=== PATIENT | male | born 1955 | race Caucasian/White ===

== ENCOUNTER 2018-07-04 20:00 | Observation (INO) ==
[2018-07-04 20:09] VITALS: TEMP 98.6
--- NOTE | 2018-07-04 20:43 | ED ---
HPI General Chief Complaint: Chest Pain Stated Complaint: Chest Pain Time Seen by Provider: 07/04/18 20:19 Source: patient and RN notes reviewed Mode of arrival: ambulatory Limitations: no limitations History of Present Illness HPI narrative: 63 year old male presents to the emergency department for evaluation of chest pain that has been intermittent over the past month. Patient states it started this morning. He denies any exacerbating factors. He does state that Zantac will sometimes help alleviate it. He states pain was 6/10 to the left chest without radiation when he got here, but it is decreasing on its own, currently 1/10. He states it will sometimes radiate to the left arm , but not now. He states he was to get a stress test with Dr. Rubi on , but came here since it was worse today. He denies any associated SOB. Patient states he took several ASA today. He has hx of DM, HTN, hyperlipidemia. MD complaint: Reports chest pain STEMI Alert: No Onset (ago): month(s) (1) Duration: intermittent Onset: during rest Pain location: Reports left chest Severity: moderate Severity scale (1-10): 1 Quality: Reports heaviness and other ("bubbles") Pain radiation: Reports none Relieving factors: antacids Exacerbating factors: nothing Associated symptoms: Denies nausea, vomiting, diaphoresis, dyspnea, sense of impending doom, syncope, palpitations, fever, cough and leg swelling Treatments prior to arrival chest pain: Reports aspirin Related Data Home Medications Medication Instructions Recorded Confirmed aspirin [Aspir-81] 81 mg PO DAILY 07/04/18 07/04/18 clotrimazole-betamethasone 1 applic TOPICAL BID 07/04/18 07/04/18 hydrochlorothiazide 25 mg PO DAILY 07/04/18 07/04/18 lisinopril 20 mg PO DAILY 07/04/18 07/04/18 lovastatin 20 mg PO DAILY 07/04/18 07/04/18 metformin 1,000 mg PO DAILY 07/04/18 07/04/18 ranitidine HCl 150 mg PO DAILY 07/04/18 07/04/18 sildenafil 20 mg PO PRN 07/04/18 07/04/18 tamsulosin 0.4 mg PO DAILY 07/04/18 07/04/18 Allergies Allergy/AdvReac Type Severity Reaction Status Date / Time No Known Allergies Allergy Verified 07/04/18 20:09 Review of Systems ROS: all other systems reviewed are negative [facility] Medical History Medical History BPH (benign prostatic hyperplasia) (Acute) Diabetes (Acute) GERD (gastroesophageal reflux disease) (Acute) HTN (hypertension) (Acute) Hyperlipidemia (Acute) Social History Social History Substance History: No History of Abuse Second Hand Smoke Exposure: No Smoking Status: Former smoker How Often Do You Have a Drink Containing Alcohol: Monthly or less Recent Travel [facility] within the Last 8 Weeks: No Recent Out of Country Travel within the Last 8 Weeks: No Immunization History Tetanus Immunization: <5 Years Exam Narrative Exam Narrative: GENERAL: Well-nourished, well-developed male patient, afebrile. SKIN: Focused skin assessment warm/dry. HEAD: Normocephalic. Atraumatic. EYES: No scleral icterus. No injection or drainage. NECK: Supple, trachea midline. No JVD or lymphadenopathy. CARDIOVASCULAR: Regular rate and rhythm without murmurs, gallops, or rubs. Bilateral radial and pedal pulses 2+ RESPIRATORY: Breath sounds equal bilaterally. No accessory muscle use. Lung sounds are clear to auscultation. GASTROINTESTINAL: Abdomen soft, non-tender, nondistended. MUSCULOSKELETAL: No cyanosis, or edema. BACK: Nontender without obvious deformity. No CVA tenderness. Course Initial Documented Vital Signs Temperature 98.6 F 07/04/18 20:05 Pulse Rate 76 07/04/18 20:05 Respiratory Rate 17 07/04/18 20:05 Blood Pressure 186/88 H 07/04/18 20:05 Pulse Oximetry 97 07/04/18 20:05 Last Documented Vital Signs Temperature 98.6 F 07/04/18 20:05 Pulse Rate 59 L 07/04/18 21:19 Respiratory Rate 20 07/04/18 21:19 Blood Pressure 186/88 H 07/04/18 20:05 Pulse Oximetry 98 07/04/18 21:19 Medical Decision Making MDM Narrative Medical decision making narrative: 63 year old male presents to the emergency department for evaluation of chest pain that has been intermittent for the past month. EKG, CBC, CMP, Magnesium, Troponin, Chest x-ray are ordered and pending. CBC shows slight leukocytosis of 11.2. CMP shows no acute abnormality. Magnesium is 2.1. Troponin is less than 0.02. Chest x-ray is negative. Patient will be admitted to the [facility]. Medical Screen Exam Complete: Yes Emergency Medical Condition: Yes Differential Diagnosis Differential Diagnosis: ACS vs. angina vs. anxiety vs. chest wall pain vs. pneumonia vs. pneumothorax Medical Records Medical records reviewed: Yes I reviewed the patient's medical records. Lab Data Result diagrams: 07/04/18 20:27 07/04/18 20:27 Lab Results 07/04/18 07/04/18 07/04/18 Range/Units 20:27 20:27 20:27 WBC 11.2 H (4.0-11.0) th/mm3 RBC 4.71 (4.50-5.90) mil/mm3 Hgb 15.3 (13.0-17.0) gm/dL Hct 43.9 (39.0-51.0) % MCV 93.1 (80.0-100.0) fL MCH 32.5 (27.0-34.0) pg MCHC 34.9 (32.0-36.0) % RDW 12.7 (11.6-17.2) % Plt Count 240 (150-450) th/mm3 MPV 11.3 H (7.0-11.0) fL Neut % (Auto) 40.0 (16.0-70.0) % Lymph % (Auto) 45.9 H (9.0-44.0) % [place] % (Auto) 9.9 H (0.0-8.0) % Eos % (Auto) 3.9 (0.0-4.0) % Baso % (Auto) 0.3 (0.0-2.0) % Neut # (Auto) 4.5 (1.8-7.7) th/mm3 Lymph # (Auto) 5.1 H (1.0-4.8) th/mm3 [place] # (Auto) 1.1 H (0.0-0.9) th/mm3 Eos # (Auto) 0.4 (0.0-0.4) th/mm3 Baso # (Auto) 0.0 (0.0-0.2) th/mm3 WBC Differential . Differential Comment Auto diff final Sodium 137 (136-145) meq/L Potassium 3.7 (3.5-5.1) meq/L Chloride 104 (98-107) meq/L Carbon Dioxide 26.6 (21.0-32.0) meq/L Anion Gap 6 (5-15) meq/L BUN 15 (7-18) mg/dL Creatinine 1.21 (0.60-1.30) mg/dL Estimated GFR 60 L (>89) mL/min Random Glucose 95 (74-106) mg/dL Calcium 8.8 (8.5-10.1) mg/dL Magnesium 2.1 Cancelled (1.5-2.5) mg/dL Total Bilirubin 0.3 (0.2-1.0) mg/dL AST 33 (15-37) U/L ALT 58 (12-78) U/L Alkaline Phosphatase 57 (45-117) U/L Troponin I Less than 0.02 L (0.02-0.05) ng/mL Total Protein 8.8 H (6.4-8.2) g/dL Albumin 4.2 (3.4-5.0) g/dL Imaging Data Radiologist's impression: Chest X-Ray 07/04/18 20:26 CONCLUSION: 1. Negative portable chest. Discharge Plan Discharge Disposition Patient Disposition: ED Admit(ED Internal Use Only) Discharge Order Discharge Orders: ED Use Only Admit Order (Routine); Ordered 07/04/18 Ordered By: Reena Baker Discharge Details Diagnosis: Chest pain Physicians Team ED Provider: Geovany Sanchez ED Midlevel Provider: Reena Baker Primary Care Provider: Saw Arguelles Attending Provider: Delgado Knutson Discharge Interventions Interventions: Vital Signs Last Done: 07/04/18 21:19 Status ED Status: Admitted Observation Patient
[2018-07-04 20:46] LABS: Baso % (Auto) 0.3 % (0.0-2.0); Eos # (Auto) 0.4 th/mm3 (0.0-0.4); Eos % (Auto) 3.9 % (0.0-4.0); Hematocrit 43.9 % (39.0-51.0); Hemoglobin 15.3 gm/dL (13.0-17.0); Lymph # (Auto) 5.1 th/mm3 (1.0-4.8); Lymph % (Auto) 45.9 % (9.0-44.0); Mean Corpuscular HGB Conc 34.9 % (32.0-36.0); Mean Corpuscular Hemoglobin 32.5 pg (27.0-34.0); Mean Corpuscular Volume 93.1 fL (80.0-100.0); Mean Platelet Volume 11.3 fL (7.0-11.0); Mono # (Auto) 1.1 th/mm3 (0.0-0.9); Mono % (Auto) 9.9 % (0.0-8.0); Neut # (Auto) 4.5 th/mm3 (1.8-7.7); Platelet Count 240 th/mm3 (150-450); Red Blood Count 4.71 mil/mm3 (4.50-5.90); Red Cell Distribution Width 12.7 % (11.6-17.2); White Blood Count 11.2 th/mm3 (4.0-11.0)
[2018-07-04 21:13] LABS: Albumin 4.2 g/dL (3.4-5.0); Anion Gap 6 meq/L (5-15); Aspartate Aminotransferase 33 U/L (15-37); Blood Urea Nitrogen 15 mg/dL (7-18); Calcium 8.8 mg/dL (8.5-10.1); Carbon Dioxide 26.6 meq/L (21.0-32.0); Chloride 104 meq/L (98-107); Glomerular Filtration Rate 60 mL/min (>89); Glucose,Random 95 mg/dL (74-106); Magnesium 2.1 mg/dL (1.5-2.5); Potassium 3.7 meq/L (3.5-5.1); Sodium 137 meq/L (136-145)
[2018-07-04 21:15] LABS: Alanine Aminotransferase 58 U/L (12-78)
[2018-07-04 21:18] LABS: Alkaline Phosphatase 57 U/L (45-117); Total Protein 8.8 g/dL (6.4-8.2)
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
[2018-07-04] MEDS ORDERED: Acetaminophen 500 MG Tablet PO PRN (21:52)
[2018-07-04 22:03] VITALS: BP 146/74; PULSE 56; RESP 13; O2SAT 97
[2018-07-05 01:00] LABS: Creatine Kinase 102 U/L (39-308)
[2018-07-05 03:30] LABS: Creatine Kinase 112 U/L (39-308)
--- NOTE | 2018-07-05 08:34 | P.HPCA ---
History of Present Illness Primary Care Physician: Saw Arguelles MD Chief Complaint: Chest pain History of Present Illness: 63 year old male with history of hypertension, hyperlipidemia, type 2 diabetes, GERD presents emergency room for further evaluation chest pain. Onset intermittently x3 weeks. Last episode yesterday morning approximately 20 minutes after drinking a cup of coffee and taking morning medications. Location left anterior chest. Characterized as a sharp burning sensation. No associated symptoms of nausea, vomiting, dyspnea or diaphoresis. Discomfort waxed and waned in intensity all day. No radiation. No precipitating factors. Took Zantac with some relief. Discomfort never completely resolved until 9 PM last evening. Endorses similar discomfort since . Followed up with his primary care provider, Dr. Saw Arguelles who referred him to remotely operated vehicle Dr. Elder Rubi. Seen Dr. Elder Rubi last week. He is scheduled for a CT coronary angiogram 07/10/18 and possible cardiac catheterization on Saturday07/11/18. Patient states Dr. Elder Rubi discussed different cardiac evaluation option, including cardiac catheterization. States he preferred a noninvasive test but did not wish to have chemical stress testing therefore is scheduled for a CT coronary angiogram. No recent illness, fever, cough, or injury. History of GERD. Last EGD 2 years ago, uncertain of results. Endorses recent dysphagia with increase use of Zantac and anti-acids. Past cardiac testing Follows with Dr. Elder Rubi. 12/22/15 [employer] ETT-Ambulated 7:02 minutes, no evidence of stress induced ischemia. Reports normal cardiac catheterization in 2005. Social history Known hypertension, hyperlipidemia, and type 2 diabetes. No known CAD. Former smoker, quit 1983. 10 pack year history. Endorses drinking beers on fairly regular basis. Sedentary lifestyle. Family history Father age 47 from myocardial infarction. Mother age 58 from complication of congestive heart failure. - Diagnosis (1) Chest pain of unknown etiology (2) Hypertension (3) History of type 2 diabetes mellitus (4) Hyperlipidemia Review of Systems All other systems reviewed negative except as stated in HPI PMFSH - History History Provided By: Patient - Medical History Medical History: Medical History (Last Reviewed 07/05/18 @ 08:10 by BRIDGER Melara) BPH (benign prostatic hyperplasia) Diabetes GERD (gastroesophageal reflux disease) HTN (hypertension) Hyperlipidemia - Surgical History Surgical History: Surgical History (Last Updated 07/05/18 @ 08:10 by BRIDGER Melara) H/O inguinal hernia repair - Family History Family History: Family History (Last Updated 07/05/18 @ 08:12 by BRIDGER Melara) Father Myocardial infarction Mother Congestive heart failure - Social History I have reviewed the patient's Social History: Yes - Tobacco History Second Hand Smoke Exposure: No Tobacco Use In Past 30 Days: No Smoking Status: Former smoker (quit smoking 1983) years: 10 - Alcohol History How Often Do You Have a Drink Containing Alcohol: 4 or more times a week - Substance Use History Substance History: Active Abuse - Substance Use Type Alcohol Status: Active Route Used: By Mouth Reason for Use: Calm Down - Travel History Recent Travel in the [place] Within the Last 8 Weeks: No Recent Travel Out of the Country Within the Last 8 Weeks: No - Immunization History Tetanus Immunization: <5 Years Medications and Allergies Active Medications: Active Medications Acetaminophen (Tylenol) 500 mg PO Q4H PRN PRN Reason: HEADACHE Nitroglycerin (Nitrostat Sl) 0.4 mg SL Q5M PRN PRN Reason: CHEST PAIN Ondansetron HCl (Zofran Inj) 4 mg IV.PUSH Q6H PRN PRN Reason: NAUSEA Sodium Chloride (Ns Flush) 2 ml IV.FLUSH BID [place] Sodium Chloride (Ns Flush) 2 ml IV.FLUSH PRN PRN PRN Reason: FLUSH AFTER USING IV ACCESS Allergies Allergy/AdvReac Type Severity Reaction Status Date / Time No Known Allergies Allergy Verified 07/04/18 20:09 Home Medications Medication Instructions Recorded Confirmed Type aspirin [Aspir-81] 81 mg PO DAILY 07/04/18 07/04/18 History clotrimazole-betamethasone 1 applic TOPICAL BID 07/04/18 07/04/18 History hydrochlorothiazide 25 mg PO DAILY 07/04/18 07/04/18 History lisinopril 20 mg PO DAILY 07/04/18 07/04/18 History lovastatin 20 mg PO DAILY 07/04/18 07/04/18 History metformin 1,000 mg PO DAILY 07/04/18 07/04/18 History ranitidine HCl 150 mg PO DAILY 07/04/18 07/04/18 History sildenafil 20 mg PO PRN 07/04/18 07/04/18 History tamsulosin 0.4 mg PO DAILY 07/04/18 07/04/18 History Exam Vital signs: Vital Signs 07/04/18 20:05 07/04/18 21:19 07/04/18 22:02 Temperature 98.6 F Pulse Rate 76 59 L 56 L Respiratory Rate 17 20 13 Blood Pressure 186/88 H 146/74 H Pulse Oximetry 97 98 97 Intake & Output 07/04/18 07/05/18 07/05/18 18:59 06:59 18:59 Weight 106.594 kg Other: Date of Last Bowel Movement 07/04/18 Weight On Admission 106.594 kg Narrative: GENERAL: Alert WN, WD, NAD, anxious, overweight male HEAD: NC, AT EYES: Sclera clear, conjunctiva without injection, pupils equal and round ENT: Mucous membranes pink and moist NECK: Supple, no masses, trachea midline CV: Brachycardiac rhythm, without murmur, rub, or gallop, S1-S2. No carotid bruits. Chest wall nontender to palpation. RESP: Clear lungs throughout bilateral, no crackles, wheeze, rhonchi, symmetrical chest rise, nonlabored, able to speak in full sentences ABD: Soft, NT, ND, no masses, positive bowel tones BACK: No scoliosis EXT: Pulses +2x4, no dependent edema MS: Normal tone x4 extremities, nontender, no obvious deformities, full range of motion NEURO: Motor strength 5/5, gait WNL PSYCH: A+O x3, flat affect, appropriate speech, anxious mood, appropriate insight and judgment SKIN: Normal turgor, normal texture, no lesions, no rashes, brisk cap refill, even hair distribution Results 07/04/18 20:27 07/04/18 20:27 Cardiac Enzymes 07/04/18 07/05/18 07/05/18 Range/Units 20:27 00:00 02:55 AST 33 (15-37) U/L Troponin I Less than 0.02 L Less than 0.02 L Less than 0.02 L (0.02-0.05) ng/mL CBC 07/04/18 Range/Units 20:27 WBC 11.2 H (4.0-11.0) th/mm3 RBC 4.71 (4.50-5.90) mil/mm3 Hgb 15.3 (13.0-17.0) gm/dL Hct 43.9 (39.0-51.0) % Plt Count 240 (150-450) th/mm3 Neut # (Auto) 4.5 (1.8-7.7) th/mm3 Lymph # (Auto) 5.1 H (1.0-4.8) th/mm3 [place] # (Auto) 1.1 H (0.0-0.9) th/mm3 Eos # (Auto) 0.4 (0.0-0.4) th/mm3 Baso # (Auto) 0.0 (0.0-0.2) th/mm3 Comprehensive Metabolic Panel 07/04/18 Range/Units 20:27 Sodium 137 (136-145) meq/L Potassium 3.7 (3.5-5.1) meq/L Chloride 104 (98-107) meq/L Carbon Dioxide 26.6 (21.0-32.0) meq/L BUN 15 (7-18) mg/dL Creatinine 1.21 (0.60-1.30) mg/dL Calcium 8.8 (8.5-10.1) mg/dL AST 33 (15-37) U/L ALT 58 (12-78) U/L Alkaline Phosphatase 57 (45-117) U/L Total Protein 8.8 H (6.4-8.2) g/dL Albumin 4.2 (3.4-5.0) g/dL Intake and Output 07/04/18 07/05/18 07/05/18 22:59 06:59 14:59 Other: Date of Last Bowel Movement 07/04/18 Weight 106.594 kg 106.594 kg Weight On Admission 106.594 kg - Imaging and Cardiology Imaging: Impressions Chest X-Ray 07/04/18 20:26 CONCLUSION: 1. Negative portable chest. EKG interpretations - EKG EKG results cardiology: normal axis, normal QRS, normal ST/T - Dysrhythmias Sinus rhythms and dysrhythmias: sinus bradycardia (< 50 bpm) Caprini VTE Risk Assessment Caprini VTE Risk Assessment: Moderate/High Risk (score >= 2) Caprini Risk Assessment Model: Point Value = 1 Point Value = 2 Point Value = 3 Point Value = 5 Age 41-60 Minor surgery BMI > 25 kg/m2 Swollen legs Varicose veins or History of unexplained or recurrent spontaneous Oral contraceptives or hormone replacement Sepsis (< 1 month) Serious lung disease, including pneumonia (< 1 month) Abnormal pulmonary function Acute myocardial infarction Congestive heart failure (< 1 month) History of inflammatory bowel disease Medical patient at bed rest Age 61-74 Arthroscopic surgery Major open surgery (> 45 min) Laparoscopic surgery (> 45 min) Malignancy Confined to bed (> 72 hours) Immobilizing plaster cast Central venous access Age >= 75 History of VTE Family history of VTE Factor V Leiden Prothrombin [id number] Lupus anticoagulant Anticardiolipin antibodies Elevated serum homocysteine Heparin-induced thrombocytopenia Other congenital or acquired thrombophilia Stroke (< 1 month) Elective arthroplasty Hip, pelvis, or leg fracture Acute spinal cord injury (< 1 month) Prophylaxis Regimen: Total Risk Factor Score Risk Level Prophylaxis Regimen 0-1 Low Early ambulation 2 Moderate Order ONE of the following: *Sequential Compression Device (SCD) *Heparin 5000 units SQ BID 3-4 Higher Order ONE of the following medications: *Heparin 5000 units SQ TID *Enoxaparin/Lovenox 40 mg SQ daily (WT < 150 kg, CrCl > 30 mL/min) *Enoxaparin/Lovenox 30 mg SQ daily (WT < 150 kg, CrCl > 10-29 mL/min) *Enoxaparin/Lovenox 30 mg SQ BID (WT < 150 kg, CrCl > 30 mL/min) AND/OR *Sequential Compression Device (SCD) 5 or more Highest Order ONE of the following medications: *Heparin 5000 units SQ TID (Preferred with Epidurals) *Enoxaparin/Lovenox 40 mg SQ daily (WT < 150 kg, CrCl > 30 mL/min) *Enoxaparin/Lovenox 30 mg SQ daily (WT < 150 kg, CrCl > 10-29 mL/min) *Enoxaparin/Lovenox 30 mg SQ BID (WT < 150 kg, CrCl > 30 mL/min) AND *Sequential Compression Device (SCD) Assessment and Plan - Assessment (1) Chest pain of unknown etiology Code(s): R07.89 - Other chest pain Status: Acute Plan: Admitted to chest pain center. ACS ruled out with 3 sets of EKGs and cardiac enzymes. Will be seen and evaluated by Dr. Saw Cain. Discussed likely will proceed with further cardiac testing later this morning after evaluation by remotely operated vehicle. (2) Hypertension Code(s): I10 - Essential (primary) hypertension Status: Chronic Plan: Continue lisinopril and HCTZ. Encouraged lifestyle and dietary modification in addition to medications. (3) History of type 2 diabetes mellitus Code(s): Z86.39 - Personal history of other endocrine, nutritional and metabolic disease Status: Chronic Plan: Tinea metformin. Encourage dietary modification and increasing daily activity. (4) Hyperlipidemia Code(s): E78.5 - Hyperlipidemia, unspecified Status: Chronic Plan: Continue lovastatin. Due to patient's hesitancy and statements regarding statin therapy, made aware guidelines for diabetic include statin therapy. H&P: Quality - VTE Deep Vein Thrombosis/Pulmonary Embolism Present on Admission: No (2) Hypertension Qualifiers: Hypertension type: unspecified Qualified Code(s): I10 - Essential (primary) hypertension (4) Hyperlipidemia Qualifiers: Hyperlipidemia type: unspecified Qualified Code(s): E78.5 - Hyperlipidemia, unspecified
--- NOTE | 2018-07-05 08:51 | P.PNCA ---
Subjective Interval history: 63-year-old gentleman seen and examined the nurse practitioner. History and physical is as documented in her notes. This patient's presentation is atypical for cardiac disease and he has been previously evaluated with negative findings. He has also had previous GI evaluation of a concern about an ulcer that he seems to have dismissed. His current symptoms are suggestive of GI and he has complaints of dysphagia. However, he is extremely anxious about cardiac disease because both his mother and his father younger than he of heart disease. We will rule him out again because of his risk factors of family history diabetes and hypertension but his symptoms will clearly warrant further GI evaluation after his discharge. Medications and Allergies Active Medications: Active Medications Acetaminophen (Tylenol) 500 mg PO Q4H PRN PRN Reason: HEADACHE Nitroglycerin (Nitrostat Sl) 0.4 mg SL Q5M PRN PRN Reason: CHEST PAIN Ondansetron HCl (Zofran Inj) 4 mg IV.PUSH Q6H PRN PRN Reason: NAUSEA Sodium Chloride (Ns Flush) 2 ml IV.FLUSH BID [place]ON[place] Sodium Chloride (Ns Flush) 2 ml IV.FLUSH PRN PRN PRN Reason: FLUSH AFTER USING IV ACCESS Allergies Allergy/AdvReac Type Severity Reaction Status Date / Time No Known Allergies Allergy Verified 07/04/18 20:09 Home Medications Medication Instructions Recorded Confirmed Type aspirin [Aspir-81] 81 mg PO DAILY 07/04/18 07/04/18 History clotrimazole-betamethasone 1 applic TOPICAL BID 07/04/18 07/04/18 History hydrochlorothiazide 25 mg PO DAILY 07/04/18 07/04/18 History lisinopril 20 mg PO DAILY 07/04/18 07/04/18 History lovastatin 20 mg PO DAILY 07/04/18 07/04/18 History metformin 1,000 mg PO DAILY 07/04/18 07/04/18 History ranitidine HCl 150 mg PO DAILY 07/04/18 07/04/18 History sildenafil 20 mg PO PRN 07/04/18 07/04/18 History tamsulosin 0.4 mg PO DAILY 07/04/18 07/04/18 History Physical Exam Vital signs: Vital Signs 07/04/18 20:05 07/04/18 21:19 07/04/18 22:02 Temperature 98.6 F Pulse Rate 76 59 L 56 L Respiratory Rate 17 20 13 Blood Pressure 186/88 H 146/74 H Pulse Oximetry 97 98 97 Intake & Output 07/04/18 07/05/18 07/05/18 18:59 06:59 18:59 Weight 106.594 kg Other: Date of Last Bowel Movement 07/04/18 Weight On Admission 106.594 kg Narrative: Well-nourished well-developed obese man in no acute distress walking about room Skin warm and dry Head normocephalic atraumatic Eyes PERRLA EOMI sclera clear Mouth mucous membranes moist tongue well papillated teeth in good state of repair no lesions Neck supple no JVD masses nodes or bruits Chest no tenderness is noted clear to auscultation with no rales wheezes or rhonchi Cardiovascular PMI is not displaced the rhythm is regular sinus there are no gallops rubs or murmurs Abdomen obese soft nontender no guarding or rebound no hepatosplenomegaly or masses Extremities no clubbing cyanosis or edema pulses are mildly diminished but intact Neurologic cranial nerves exclusive of olfactory are intact. Motor upper and lower is symmetric and approximately equal. Gait and balance were not tested Psychiatric he is clearly anxious but appears to exhibit good memory and good judgment. Results 07/04/18 20:27 07/04/18 20:27 Cardiac Enzymes 07/04/18 07/05/18 07/05/18 Range/Units 20:27 00:00 02:55 AST 33 (15-37) U/L Troponin I Less than 0.02 L Less than 0.02 L Less than 0.02 L (0.02-0.05) ng/mL CBC 07/04/18 Range/Units 20:27 WBC 11.2 H (4.0-11.0) th/mm3 RBC 4.71 (4.50-5.90) mil/mm3 Hgb 15.3 (13.0-17.0) gm/dL Hct 43.9 (39.0-51.0) % Plt Count 240 (150-450) th/mm3 Neut # (Auto) 4.5 (1.8-7.7) th/mm3 Lymph # (Auto) 5.1 H (1.0-4.8) th/mm3 [place] # (Auto) 1.1 H (0.0-0.9) th/mm3 Eos # (Auto) 0.4 (0.0-0.4) th/mm3 Baso # (Auto) 0.0 (0.0-0.2) th/mm3 Comprehensive Metabolic Panel 07/04/18 Range/Units 20:27 Sodium 137 (136-145) meq/L Potassium 3.7 (3.5-5.1) meq/L Chloride 104 (98-107) meq/L Carbon Dioxide 26.6 (21.0-32.0) meq/L BUN 15 (7-18) mg/dL Creatinine 1.21 (0.60-1.30) mg/dL Calcium 8.8 (8.5-10.1) mg/dL AST 33 (15-37) U/L ALT 58 (12-78) U/L Alkaline Phosphatase 57 (45-117) U/L Total Protein 8.8 H (6.4-8.2) g/dL Albumin 4.2 (3.4-5.0) g/dL Intake and Output 07/04/18 07/05/18 07/05/18 22:59 06:59 14:59 Other: Date of Last Bowel Movement 07/04/18 Weight 106.594 kg 106.594 kg Weight On Admission 106.594 kg - Imaging and Cardiology Imaging: Impressions Chest X-Ray 07/04/18 20:26 CONCLUSION: 1. Negative portable chest. Assessment and Plan - Assessment (1) Chest pain of unknown etiology Code(s): R07.89 - Other chest pain Status: Acute Plan: Admitted to chest pain center. ACS ruled out with 3 sets of EKGs and cardiac enzymes. Will be seen and evaluated by Dr. Saw Cain. Patient has ruled out for ACS using standard chest pain center protocol. He will be further evaluated with an exercise stress test. If this is negative he will be discharged with the recommendation that they have a follow-up with GI services for further evaluation of his dysphagia and GI pain. (2) Hypertension Code(s): I10 - Essential (primary) hypertension Status: Chronic Plan: Continue lisinopril (3) History of type 2 diabetes mellitus Code(s): Z86.39 - Personal history of other endocrine, nutritional and metabolic disease Status: Chronic (4) Hyperlipidemia Code(s): E78.5 - Hyperlipidemia, unspecified Status: Chronic (2) Hypertension Qualifiers: Hypertension type: unspecified Qualified Code(s): I10 - Essential (primary) hypertension
[2018-07-05] MEDS ORDERED: hydroCHLOROthiazide 25 MG Tablet PO SCH (09:00)
[2018-07-05] MEDS ORDERED: Lisinopril 20 MG Tablet PO SCH (09:00)
[2018-07-05] MEDS ORDERED: Famotidine 20 MG Tablet PO SCH (09:15)
--- NOTE | 2018-07-05 12:08 | ECG ---
Date Performed: 07/05/2018 Time Performed: 00:01:19 PTAGE: 63 years EKG: SINUS BRADYCARDIA LOW QRS VOLTAGE IN PRECORDIAL LEADS BORDERLINE ECG No significant change NO PREVIOUS TRACING DOCTOR: Saw Cain Interpretating Date/Time 07/05/2018 12:07:08
--- NOTE | 2018-07-05 12:08 | ECG ---
Date Performed: 07/05/2018 Time Performed: 02:07:53 PTAGE: 63 years EKG: SINUS BRADYCARDIA BORDERLINE ECG No significant change PREVIOUS TRACING : 07/04/2018 20.26 DOCTOR: Saw Cain Interpretating Date/Time 07/05/2018 12:06:53
--- NOTE | 2018-07-05 12:09 | ECG ---
Date Performed: 07/04/2018 Time Performed: 20:26:52 PTAGE: 63 years EKG: Sinus rhythm MINIMAL ST DEPRESSION BORDERLINE ECG No change PREVIOUS TRACING : 12/21/2015 21.22 DOCTOR: Saw Cain Interpretating Date/Time 07/05/2018 12:07:41
--- NOTE | 2018-07-05 12:12 | TR ---
Date Performed: 07/05/2018 Time Performed: 09:11:56 DOCTOR: Saw Cain DRUG LIST: CLINICAL HISTORY: CHEST PAIN REASON FOR TEST: Chest pain REASON FOR ENDING: OBSERVATION: CONCLUSION: [employer] protocol completed. Stopped sec to exceeding target heart rate and leg fatigue . Maximum NE=659 Max HR [place]=522.0% Maximum FX=246/92 Total Exercise Time=7:01. No reprod chest discomfort. Infrequent PVC. No st t segment changes, nondiagnositc. Normal bp reponse. Fair exercise tolerance. Recovery quick and unremarkable. COMMENTS: Negative high-level stress test with a low probability of clinically significant ische candie heart disease
== END 2018-07-05 10:27 | disposition home or self-care (01) ==
LOC: NEDA 20:00 → NEPE 20:00 → NEPFCDU 22:47
PROVIDERS: ADMIT Internal Medicine Cardiovascular Disease; ATTEND Internal Medicine Cardiovascular Disease